=== PATIENT | female | born 1970 | race Caucasian/White ===

== ENCOUNTER 2019-01-16 20:57 | Emergency (ER) | payer MEDICAID, OTHER ==
[~2019-01-16] VITALS: Ht 170.2 cm; Wt 101.0 kg
[~2019-01-16 20:57] MED LIST: ALBU18HF2 INH; BUDE10.2 INH; MONT10TA21 PO
[2019-01-16 20:59] VITALS: BP 137/83
[2019-01-16] MEDS ORDERED: AZIT250T PO (21:38)
[2019-01-16] MEDS ORDERED: BENZ-16 PO (21:38)
== END 2019-01-16 21:56 | disposition home or self-care (01) ==
LOC: ER 20:57
DX: J44.1 Chronic obstructive pulmonary disease with (acute) exacerbation (principal); F17.299 Nicotine dependence, other tobacco product, with unspecified nicotine-induced disorders; Z88.6 Allergy status to analgesic agent; Z79.899 Other long term (current) drug therapy
CPT/HCPCS: 99283; 99406